=== PATIENT | female | born 1955 | race Hispanic/Latino ===

== ENCOUNTER 2017-07-05 07:18 | Day surgery (SDC) | payer MEDICARE ==
[2017-07-02 16:31] VITALS: BP 100/68
[2017-07-02 16:36] LABS: BASOPHILS % (AUTO) 0.7 % (0.0-5.0); EOSINOPHILS % (AUTO) 1.9 % (0.0-8.0); HEMATOCRIT 40.9 % (36-48); LYMPHOCYTES % (AUTO) 28.2 % (21.0-51.0); MEAN CORPUSCULAR HEMOGLOBIN 29.7 pg (27.0-33.0); MEAN CORPUSCULAR HGB CONC 34.3 g/dL (32.0-36.0); MEAN CORPUSCULAR VOLUME 86.5 fL (79-99); MONOCYTES % (AUTO) 5.1 % (3.0-13.0); NEUTROPHILS % (AUTO) 64.1 % (40.0-77.0); PLATELET COUNT (AUTO) 245 K/uL (130-400); RED BLOOD CELL COUNT(AUTO) 4.73 MIL/uL (4.00-5.50); RED CELL DISTRIBUTION WIDTH 14.7 % (11.0-15.5); WHITE BLOOD COUNT (AUTO) 7.4 K/uL (4.8-10.8)
[2017-07-02 16:46] LABS: CREATININE 0.9 mg/dL (0.5-1.5); POTASSIUM 3.9 mmol/L (3.5-5.1)
[2017-07-02 16:55] LABS: APPEARANCE,URINE Clear (CLEAR); BILIRUBIN,URINE Negative (NEGATIVE); COLOR,URINE Dark Yellow (YELLOW); GLUCOSE, URINE (UA) Negative (NEGATIVE); KETONES,URINE Negative (NEGATIVE); LEUKOCYTE ESTERASE ,URINE Small (NEGATIVE); NITRATE,URINE Negative (NEGATIVE); OCCULT BLOOD,URINE Small (NEGATIVE); PROTEIN,URINE Negative (NEGATIVE); UROBILINOGEN,URINE 0.2 mg/dL (0.2-1.0)
[2017-07-02 17:21] LABS: BACTERIA,URINE Few /HPF (None Seen); RBC,URINE 0-1 /HPF (0-1); SQUAMOUS EPITHELIAL CELL,UR Rare /LPF (0-2)
[~2017-07-05] VITALS: Ht 154.9 cm; Wt 94.5 kg
[2017-07-05] VITALS (16 sets, daily range): BP systolic 101–122; BP diastolic 52–80
[~2017-07-05 07:18] MED LIST: BACL20TA PO; BOTULINUM TOXIN TYPE A 100 UNITS/VIAL INJ SCH; CALC-866 PO; CEFTRIAXONE SODIUM 1 GM IVP SCH; CYAN50008 PO; GABA-531 PO; HYDR-4068 PO; LISI-617 PO; LORA2TAB2 PO; OMEP40CA37 PO; OXYB5TAB10 PO; PRAM0.25 PO; SERT100T12 PO; SIMV40TA59 PO
[2017-07-05] MEDS ORDERED: LACTATED RINGERS 1000ML 1,000 ML IV ONE (09:36)
[2017-07-05] MEDS ORDERED: MEPERIDINE-PF 50 MG/ML SYG ONE (09:48)
[2017-07-05] MEDS ORDERED: MEPERIDINE-PF 25 MG/ML SYG IVP SCH (10:30)
[2017-07-05] MEDS ORDERED: LIDOCAINE PF 2% 5ML ABBOJECT ONE (11:25)
[2017-07-05] MEDS ORDERED: ONDANSETRON HCL 4 MG/2 ML VIAL ONE (11:25)
[2017-07-05] MEDS ORDERED: MIDAZOLAM HCL 1 MG/ML 2ML VIAL ONE (11:25)
[2017-07-05] MEDS ORDERED: DEXAMETHASONE SOD PHOSPHATE 10MG/ML 1ML VIAL ONE (11:25)
[2017-07-05] MEDS ORDERED: PROPOFOL 10 MG/ML 20ML VIAL IV ONE (11:25)
[2017-07-05] MEDS ORDERED: FENTANYL CITRATE PF 50 MCG/1 ML 2ML VIAL ONE ×2 (11:28→12:26)
[2017-07-05] MEDS ORDERED: BOTULINUM TOXIN TYPE A 100 UNITS/VIAL ONE (11:30)
== END 2017-07-05 14:37 | disposition home or self-care (01) ==
LOC: DAH 07:18
PROVIDERS: ATTEND Urology
DX: N39.41 Urge incontinence (principal); G35 Multiple sclerosis
CPT/HCPCS: 36415; 52287; 80048; 81001; 85025; 87088; 87186; A4215; A4218; A4354; A4358; A4600; J0585; J0696; J1100; J2001; J2175; J2250; J2405; J2704; J3010 ×2; J7120

== ENCOUNTER 2018-02-21 06:31 | Day surgery (SDC) | payer MEDICARE ==
[2018-02-19 11:25] VITALS: BP 115/75
[2018-02-19 11:54] LABS: APPEARANCE,URINE Clear (CLEAR); BILIRUBIN,URINE Negative (NEGATIVE); COLOR,URINE Yellow (YELLOW); GLUCOSE, URINE (UA) Negative (NEGATIVE); KETONES,URINE Negative (NEGATIVE); LEUKOCYTE ESTERASE ,URINE Large (NEGATIVE); NITRATE,URINE Positive (NEGATIVE); OCCULT BLOOD,URINE Small (NEGATIVE); PROTEIN,URINE Negative (NEGATIVE)
[2018-02-19 11:55] LABS: BASOPHILS % (AUTO) 0.4 % (0.0-5.0); EOSINOPHILS % (AUTO) 1.3 % (0.0-8.0); HEMATOCRIT 43.2 % (36-48); LYMPHOCYTES % (AUTO) 27.2 % (21.0-51.0); MEAN CORPUSCULAR HEMOGLOBIN 28.6 pg (27.0-33.0); MEAN CORPUSCULAR HGB CONC 32.7 g/dL (32.0-36.0); MEAN CORPUSCULAR VOLUME 87.4 fL (79-99); MONOCYTES % (AUTO) 6.3 % (3.0-13.0); NEUTROPHILS % (AUTO) 64.8 % (40.0-77.0); PLATELET COUNT (AUTO) 204 K/uL (130-400); RED BLOOD CELL COUNT(AUTO) 4.94 MIL/uL (4.00-5.50); RED CELL DISTRIBUTION WIDTH 15.7 % (11.0-15.5); WHITE BLOOD COUNT (AUTO) 8.1 K/uL (4.8-10.8)
[2018-02-19 12:01] LABS: CREATININE 0.8 mg/dL (0.5-1.5)
[2018-02-19 12:12] LABS: BACTERIA,URINE Many /HPF (None Seen); SQUAMOUS EPITHELIAL CELL,UR 0-2 /HPF (0-2); TRANSITIONAL EPI CELLS,URINE Few /HPF (None Seen)
[2018-02-21] VITALS (14 sets, daily range): BP systolic 111–146; BP diastolic 73–88
[~2018-02-21] VITALS: Ht 154.9 cm; Wt 90.7 kg
[~2018-02-21 06:31] MED LIST changes: -CALC-866 PO; -CEFTRIAXONE SODIUM 1 GM IVP SCH; -CYAN50008 PO; -LISI-617 PO; +MIRA25TA PO; +MORINGA PO; +OMEGA; -OXYB5TAB10 PO; +VITAMIN B PO; +ZONI25CA3 PO
[2018-02-21] MEDS ORDERED: LACTATED RINGERS 1000ML 1,000 ML IV ONE (07:52)
[2018-02-21] MEDS ORDERED: CEFTRIAXONE SODIUM 1 GM IVP ONE (08:00)
[2018-02-21] MEDS ORDERED: NITR100C PO (08:56)
[2018-02-21] MEDS ORDERED: LIDOCAINE PF 2% 5ML ABBOJECT ONE (09:13)
[2018-02-21] MEDS ORDERED: PROPOFOL 10 MG/ML 20ML VIAL IV ONE (09:13)
[2018-02-21] MEDS ORDERED: MIDAZOLAM HCL 1 MG/ML 2ML VIAL ONE (09:15)
[2018-02-21] MEDS ORDERED: FAMOTIDINE/PF 20 MG/2 ML VIAL IV ONE (10:22)
[2018-02-21] MEDS ORDERED: EPHEDRINE SULFATE 50 MG/ML AMPULE ONE (11:04)
== END 2018-02-21 13:10 | disposition home or self-care (01) ==
LOC: DAH 06:31
PROVIDERS: ATTEND Urology
DX: N39.41 Urge incontinence (principal); N30.80 Other cystitis without hematuria; E78.5 Hyperlipidemia, unspecified; I10 Essential (primary) hypertension; K21.9 Gastro-esophageal reflux disease without esophagitis; G35 Multiple sclerosis; M19.90 Unspecified osteoarthritis, unspecified site; F15.90 Other stimulant use, unspecified, uncomplicated; F32.9 Major depressive disorder, single episode, unspecified; F41.9 Anxiety disorder, unspecified; Z90.710 Acquired absence of both cervix and uterus; Z79.2 Long term (current) use of antibiotics; Z79.899 Other long term (current) drug therapy; Z98.49 Cataract extraction status, unspecified eye; Z82.49 Family history of ischemic heart disease and other diseases of the circulatory system
CPT/HCPCS: 36415; 52287; 80048; 81001; 85025; 87088; 87186 ×2; 93005; A4218; A4358; A4600; J0585; J0696; J2001; J2250; J2704; J3490 ×2; J7120 ×2

== ENCOUNTER 2018-09-26 07:59 | Day surgery (SDC) | payer MEDICARE ==
[2018-09-23 11:24] VITALS: BP 125/75
[2018-09-23 11:34] LABS: BILIRUBIN,URINE NEGATIVE (NEGATIVE); COLOR,URINE YELLOW (YELLOW); GLUCOSE, URINE (UA) NEGATIVE (NEGATIVE); KETONES,URINE NEGATIVE (NEGATIVE); LEUKOCYTE ESTERASE ,URINE NEGATIVE (NEGATIVE); NITRATE,URINE POSITIVE (NEGATIVE); OCCULT BLOOD,URINE MODERATE (NEGATIVE); PROTEIN,URINE NEGATIVE (NEGATIVE); UROBILINOGEN,URINE 0.2 mg/dL (0.2-1.0)
[2018-09-23 11:56] LABS: APPEARANCE,URINE CLOUDY (CLEAR)
[2018-09-23 11:57] LABS: BACTERIA,URINE Many /HPF (None Seen)
[2018-09-23 11:58] LABS: RBC,URINE 0-1 /HPF (0-1)
--- NOTE | 2018-09-24 13:02 | NUR ---
UA REPORTED AND FAXED ABNORMAL UA RESULTS TO DR. BRITTNEE TAYLOR ASST.
--- NOTE | 2018-09-25 09:29 | NUR ---
DR. BRITTNEE GUTIERREZ ASST ON PHONE. STATES DR. GOEL STARTED PT ON MACROBID 1 PILL TWICE A DAY. PROCEED WITH PLANNED PROCEDURE.
--- NOTE | 2018-09-25 12:42 | NUR ---
UA URINE CULTURE FAXED AND REPORTED TO DR. BRANDON FINGERS ASST. CALLED AND INFORMED Aby OLIVER RN INFECTION CONTROL NURSE OF RESULTS.
[~2018-09-26] VITALS: Ht 154.9 cm; Wt 95.5 kg
[2018-09-26] VITALS (13 sets, daily range): BP systolic 132–148; BP diastolic 70–92
[~2018-09-26 07:59] MED LIST changes: +ALONDRONATE PO; -MORINGA PO; -PRAM0.25 PO; -ZONI25CA3 PO; +[UNRECOGNIZED DRUG - OTHER] IM
[2018-09-26] MEDS ORDERED: LACTATED RINGERS 1000ML 1,000 ML IV ONE (09:01)
[2018-09-26] MEDS: CEFTRIAXONE SODIUM 1 GM IVP SCH ×2 (09:32→10:35)
[2018-09-26] MEDS ORDERED: LIDOCAINE PF 2% 5ML ABBOJECT ONE (10:36)
[2018-09-26] MEDS ORDERED: DEXAMETHASONE SOD PHOSPHATE 10MG/ML 1ML VIAL ONE (10:36)
[2018-09-26] MEDS ORDERED: FENTANYL CITRATE PF 50 MCG/1 ML 2ML VIAL ONE (10:37)
[2018-09-26] MEDS ORDERED: ONDANSETRON HCL 4 MG/2 ML VIAL ONE (10:37)
[2018-09-26] MEDS ORDERED: PROPOFOL 10 MG/ML 20ML VIAL IV ONE (10:37)
[2018-09-26] MEDS ORDERED: MIDAZOLAM HCL 1 MG/ML 2ML VIAL ONE (10:37)
[2018-09-26] MEDS ORDERED: LIDOCAINE HCL 2% PF 20 ML JEL DISP.SYRIN MM ONE (10:42)
[2018-09-26] MEDS ORDERED: SODIUM CHLORIDE 0.9% 10 ML VIAL ONE (10:56)
[2018-09-26] MEDS ORDERED: MEPERIDINE-PF 25 MG/ML SYG ONE (11:32)
== END 2018-09-26 12:40 | disposition home or self-care (01) ==
LOC: DAH 07:59
PROVIDERS: ATTEND Urology
DX: N39.46 Mixed incontinence (principal); G35 Multiple sclerosis; K21.9 Gastro-esophageal reflux disease without esophagitis; Z90.710 Acquired absence of both cervix and uterus; Z98.890 Other specified postprocedural states; I10 Essential (primary) hypertension; E78.5 Hyperlipidemia, unspecified
CPT/HCPCS: 52287; 81001; 87077; 87088; 87186; A4218; A4358; A4600; J0585; J0696; J1100; J2001; J2175; J2250; J2405; J2704; J3010; J7120 ×2

== ENCOUNTER 2019-03-13 06:49 | Day surgery (SDC) | payer MEDICARE ==
[2019-03-10 13:51] LABS: APPEARANCE,URINE Clear (CLEAR); BILIRUBIN,URINE Negative (NEGATIVE); COLOR,URINE Yellow (YELLOW); GLUCOSE, URINE (UA) Negative (NEGATIVE); KETONES,URINE Negative (NEGATIVE); LEUKOCYTE ESTERASE ,URINE Moderate (NEGATIVE); NITRATE,URINE Positive (NEGATIVE); OCCULT BLOOD,URINE Small (NEGATIVE); PROTEIN,URINE Negative (NEGATIVE); UROBILINOGEN,URINE 0.2 mg/dL (0.2-1.0)
[2019-03-10 13:57] VITALS: BP 128/78
[2019-03-10 14:10] LABS: BACTERIA,URINE Many /HPF (None Seen); MUCUS,URINE Few LPF (None Seen)
--- NOTE | 2019-03-12 20:13 | NUR ---
Called Doctor Fingers answering service to advise him of ua results and urine cx, spoke to answering service x2 no call back, Called cell phone and left message, no call back.
[2019-03-13] VITALS (17 sets, daily range): BP systolic 111–147; BP diastolic 62–83
[~2019-03-13] VITALS: Ht 154.9 cm; Wt 92.4 kg
[2019-03-13] MEDS: BOTULINUM TOXIN TYPE A 100 UNITS/VIAL INJ SCH ×2 (06:00→09:00)
[~2019-03-13 06:49] MED LIST changes: -ALONDRONATE PO; +ATOR40TA71 PO; -BOTULINUM TOXIN TYPE A 100 UNITS/VIAL INJ SCH; +CHOL200026 PO; -MIRA25TA PO; +NITR100C4 PO; +OMEG-53 PO; -OMEGA; -OMEP40CA37 PO; +PANT40TA25 PO; +PRAM0.25 PO; -SIMV40TA59 PO; -VITAMIN B PO; +ZOSYN 3.375GM+NS 50ML 50 ML IV SCH
[2019-03-13] MEDS ORDERED: LACTATED RINGERS 1000ML 1,000 ML IV ONE (07:57)
[2019-03-13] MEDS ORDERED: PROPOFOL 10 MG/ML 20ML VIAL IV ONE (08:01)
[2019-03-13] MEDS ORDERED: FENTANYL CITRATE PF 50 MCG/1 ML 2ML VIAL ONE (08:01)
[2019-03-13] MEDS ORDERED: LIDOCAINE PF 2% 5ML ABBOJECT ONE (08:01)
[2019-03-13] MEDS ORDERED: EPHEDRINE SULFATE 50 MG/ML AMPULE ONE (09:05)
--- NOTE | 2019-03-13 10:25 | NUR ---
post received pt from [facility], s/p cystoscopy with botox injection, pt voided on arrival no urinary retention noted. patient awake and alert, denied any pain or discomforts. vs stable on arrival. patients care will be resumed by Krista Pop RN.
== END 2019-03-13 11:40 | disposition home or self-care (01) ==
LOC: DAH 06:49
PROVIDERS: ATTEND Urology
DX: N39.41 Urge incontinence (principal); G35 Multiple sclerosis; E78.5 Hyperlipidemia, unspecified; M19.90 Unspecified osteoarthritis, unspecified site; Z98.890 Other specified postprocedural states; N30.20 Other chronic cystitis without hematuria
CPT/HCPCS: 52287; 81001; 87077; 87088; 87186; A4215 ×2; A4221; A4222; A4223; A4335 ×2; A4358; A4600; A4663; A4930; A6260; J0585; J2001; J2543; J2704; J3010; J3490; J7120 ×2

== ENCOUNTER 2020-10-21 08:03 | Day surgery (SDC) | payer OTHER, MEDICARE ==
[2020-10-15 13:32] LABS: APPEARANCE,URINE Cloudy (CLEAR); BILIRUBIN,URINE Small (NEGATIVE); COLOR,URINE Dark Yellow (YELLOW); GLUCOSE, URINE (UA) Negative (NEGATIVE); KETONES,URINE Trace mg/dL (NEGATIVE); LEUKOCYTE ESTERASE ,URINE Small (NEGATIVE); NITRATE,URINE Negative (NEGATIVE); OCCULT BLOOD,URINE Nonhemolyzed Trace (NEGATIVE); PROTEIN,URINE Trace mg/dL (NEGATIVE)
[2020-10-15 13:36] LABS: BACTERIA,URINE Few /HPF (None Seen); RBC,URINE 0-1 /HPF (0-1); WBC,URINE 0-1 /HPF (0-1)
[2020-10-15 13:37] LABS: HYALINE CASTS, URINE 0-1 /LPF (0-1 /LPF); MUCUS,URINE Few LPF (None Seen); SQUAMOUS EPITHELIAL CELL,UR Moderate /HPF (0-2)
[2020-10-20 10:54] VITALS: BP 126/72
[2020-10-20 12:43] VITALS: BP 126/72
[2020-10-21] VITALS (17 sets, daily range): BP systolic 109–144; BP diastolic 70–85
[~2020-10-21 08:03] MED LIST changes: +ALEN35TA51 PO; +CALCIUM PO; -PANT40TA25 PO; +PANT40TA54 PO; -PRAM0.25 PO; -SERT100T12 PO; -ZOSYN 3.375GM+NS 50ML 50 ML IV SCH; +tumeric PO; +vitamin b12 PO
[2020-10-21] MEDS ORDERED: LACTATED RINGERS 1000ML 1,000 ML IV ONE (09:16)
[2020-10-21] MEDS: ZOSYN 3.375GM+NS 50ML 50 ML IV PRN ×2 (10:02→11:10)
[2020-10-21] MEDS: BOTULINUM TOXIN TYPE A 100 UNITS/VIAL INJ PRN ×2 (10:02→11:30)
[2020-10-21] MEDS ORDERED: MIDAZOLAM HCL 1 MG/ML 2ML VIAL ONE (10:58)
[2020-10-21] MEDS ORDERED: FENTANYL CITRATE PF 50 MCG/1 ML 2ML VIAL ONE (10:58)
[2020-10-21] MEDS ORDERED: ATROPINE SULFATE 0.1 MG/ML 10 ML SYG IVP ONE (11:19)
== END 2020-10-21 13:31 | disposition home or self-care (01) ==
LOC: DAH 08:03
PROVIDERS: ATTEND Urology
DX: N39.41 Urge incontinence (principal); G35 Multiple sclerosis; K21.9 Gastro-esophageal reflux disease without esophagitis; I10 Essential (primary) hypertension; E78.5 Hyperlipidemia, unspecified; Z20.822 Contact with and (suspected) exposure to COVID-19; Z79.899 Other long term (current) drug therapy
CPT/HCPCS: 52287; 81001; 87088; A4215; A4223; A4358; A6260; C9803; J0461; J0585; J2250; J2543; J3010; J7120; U0003